=== PATIENT | male | born 1955 | race Caucasian/White ===

== ENCOUNTER 2022-07-13 14:39 | Observation (INO) ==
[2022-07-13 15:15] LABS: ABS Eosinophils 0.1 10^3/ul (0-0.6); ABS Monocytes 0.8 10^3/ul (0-0.8); ABS Neutrophils 7.6 10^3/ul (1.5-7.7); Eosinophil % 0.8 %; Hematocrit 47 % (42-52); Hemoglobin 15.4 g/dL (14.0-18.0); Lymphocyte % 10.3 %; Mean Corpuscular HGB Conc 33 g/dL (31-36); Mean Corpuscular Hemoglobin 30 pg (27-31); Mean Corpuscular Volume 92 fL (80-94); Mean Platelet Volume 8.3 fL (7.4-10.4); Nucleated Red Blood Cells % 0.1; Platelet Count 201 10^3/uL (150-450); Red Blood Count 5.09 10^6 /uL (4.18-5.48); Red Cell Distribution Width 14 % (10-15); White Blood Count 9.5 10^3/uL (3.5-10.8)
[2022-07-13 15:47] LABS: INR 1.05 (0.88-1.18)
[2022-07-13 16:06] LABS: Potassium 4.1 mmol/L (3.5-5.0); Total Bilirubin 0.6 mg/dL (0.2-1.0)
[2022-07-13 16:12] LABS: Albumin/Globulin Ratio 1.5 (1-3); Creatinine, Serum 0.98 mg/dL (0.67-1.17); Globulin 2.6 g/dL (2-4); Total Protein 6.6 g/dL (6.4-8.9); eGFR CKD-EPI 83.5 (>60)
[2022-07-13 17:06] LABS: High Sensitivity Troponin 1 Hr 7 pg/mL (<20)
[2022-07-13] MEDS ORDERED: Metoclopramide 5 MG/ML VIAL (10 mg) IV SLOW PU ONE (17:51)
[2022-07-13] MEDS ORDERED: Iodixanol (CONTRAST) 320 MG/ML 100 ML SDV IV ONE (18:24)
[2022-07-13] MEDS ORDERED: Ondansetron 4 mg VIAL 2 MG/ML 2 ml VIAL ONE (18:30)
[2022-07-13] MEDS ORDERED: Labetalol IV 5 MG/ML 20 ml VIAL ONE (18:41)
[2022-07-13] MEDS ORDERED: Ondansetron 4 mg VIAL 2 MG/ML 2 ml VIAL IV ONE (18:53)
[2022-07-13] MEDS ORDERED: Labetalol IV 5 MG/ML 20 ml VIAL IV PUSH PRN (21:02)
[2022-07-13 22:35] LABS: HDL Cholesterol 67.3 mg/dL
[2022-07-14 16:05] VITALS: BP 153/85
== END 2022-07-14 16:05 | disposition home or self-care (01) ==
LOC: EDHOLD 14:39 → ED 14:39 → SUATTDRO 19:11 → MEDTELE 07-14 00:08
PROVIDERS: ADMIT Student in an Organized Health Care Education/Training Program; ATTEND Hospitalist

== ENCOUNTER 2024-03-24 12:49 | Observation (INO) ==
[2024-03-24 13:35] LABS: ABS Eosinophils 0.1 10^3/uL (0.0-0.5); ABS Lymphocytes 1.1 10^3/uL (1.0-4.8); ABS Monocytes 0.6 10^3/uL (0.0-1.1); ABS Neutrophils 4.6 10^3/uL (1.5-7.6); Eosinophil % 1.6 %; Hematocrit 47.8 % (38-53); Hemoglobin 15.8 g/dL (13.2-16.3); Lymphocyte % 17.3 %; Mean Corpuscular Hemoglobin 30.5 pg (27-33); Mean Corpuscular Hgb Conc 33.1 g/dL (31-36); Mean Platelet Volume 8.6 fL (7.5-11.2); Nucleated Red Blood Cells % 0.1 %/100WBC (0.0-0.8); Platelet Count 221 10^3/uL (150-450); Red Cell Distribution Width 14.2 % (12-17); White Blood Count 6.4 10^3/uL (3.6-10.2)
[2024-03-24 13:41] LABS: INR 1.02 (0.85-1.14)
[2024-03-24 14:11] LABS: High Sens Troponin Baseline 5 pg/mL (<20)
[2024-03-24 14:13] LABS: ALT 13 U/L (7-52); AST 23 U/L (13-39); Albumin 4.1 g/dL (3.2-5.2); Albumin/Globulin Ratio 1.9 (1-3); Alcohol, S < 13 mg/dL (<13); Alkaline Phosphatase 88 U/L (35-149); Anion Gap 13 mmol/L (2-16); Blood Urea Nitrogen 13 mg/dL (6-24); CO2 Carbon Dioxide 23 mmol/L (22-32); Calcium 9.3 mg/dL (8.6-10.3); Chloride 101 mmol/L (101-111); Creatinine, Serum 1.09 mg/dL (0.67-1.17); Globulin 2.2 g/dL (2-4); Glucose 190 mg/dL (70-100); Potassium 4.1 mmol/L (3.5-5.0); Sodium 137 mmol/L (135-145); Total Bilirubin 0.6 mg/dL (0.2-1.0); Total Protein 6.3 g/dL (6.4-8.9)
[2024-03-24 14:51] LABS: High Sensitivity Troponin 1 Hr 8 pg/mL (<20)
[2024-03-24] MEDS ORDERED: Lorazepam PYXIS KEY PRN (15:50)
[2024-03-24 16:08] LABS: Urine Appearance Clear; Urine Bilirubin Negative (Negative); Urine Blood Negative (Negative); Urine Color Light-Yellow; Urine Glucose Negative (Negative); Urine Ketones 1+ (Negative); Urine Nitrite Negative (Negative); Urine Protein 1+ (>=30 mg/dL) (Negative); Urine Specific Gravity 1.023 (1.002-1.030); Urine Urobilinogen Negative (Negative); Urine pH 5.5 (5.0-8.0)
[2024-03-24 16:12] LABS: Urine Amorphous Crystals Present /HPF (Absent); Urine Bacteria Absent /HPF (Absent); Urine Red Blood Cell 2+(6-10/hpf) /HPF (0-Trace); Urine Sperm Present /HPF (Absent); Urine White Blood Cell Trace(0-5/hpf) /HPF (0-Trace)
[2024-03-24] MEDS: LORazepam 2 mg VIAL 1 ml IV PUSH ONE (16:34)
[2024-03-24] MEDS: Enoxaparin 40 MG/0.4 ML SYR SUBCUT SCH (18:24)
[2024-03-24] MEDS: Thiamine 100 MG/ML 2 ml VIAL (200 mg) IM ONE (18:35)
[2024-03-24] MEDS: Multivitamins/Minerals TAB PO SCH (19:51)
[2024-03-24 21:05] LABS: HDL Cholesterol 63.1 mg/dL
[2024-03-25 06:11] LABS: ABS Eosinophils 0.1 10^3/uL (0.0-0.5); ABS Lymphocytes 1.1 10^3/uL (1.0-4.8); ABS Monocytes 0.9 10^3/uL (0.0-1.1); ABS Neutrophils 4.2 10^3/uL (1.5-7.6); ABS Nucleated RBC 0.01 10^3/ul; Eosinophil % 2.3 %; Hematocrit 45.2 % (38-53); Hemoglobin 15.1 g/dL (13.2-16.3); Mean Corpuscular Hgb Conc 33.5 g/dL (31-36); Mean Corpuscular Volume 92.6 fL (80-97); Mean Platelet Volume 8.6 fL (7.5-11.2); Nucleated Red Blood Cells % 0.1 %/100WBC (0.0-0.8); Platelet Count 201 10^3/uL (150-450); Red Blood Count 4.88 10^6/uL (4.06-5.63); Red Cell Distribution Width 14.2 % (12-17); White Blood Count 6.4 10^3/uL (3.6-10.2)
[2024-03-25 06:24] LABS: Albumin 3.6 g/dL (3.2-5.2); Albumin/Globulin Ratio 1.7 (1-3); Calcium 8.7 mg/dL (8.6-10.3); Creatinine, Serum 0.96 mg/dL (0.67-1.17); Globulin 2.1 g/dL (2-4); Total Bilirubin 0.7 mg/dL (0.2-1.0); Total Protein 5.7 g/dL (6.4-8.9)
[2024-03-25 15:59] VITALS: BP 153/91
== END 2024-03-25 19:45 | disposition home or self-care (01) ==
LOC: EDHOLD 12:49 → ED 12:49 → EDHOLD 03-25 06:23 → MEDTELE 03-25 12:06
PROVIDERS: ADMIT Internal Medicine; ATTEND Internal Medicine